=== PATIENT | male | born 1990 | race African-American/Black ===

== ENCOUNTER 2019-10-25 02:48 | Emergency (ER) | payer SELFPAY ==
[~2019-10-25] VITALS: Ht 170.2 cm; Wt 81.6 kg
[2019-10-25 02:58] VITALS: Ht 170.2 cm; Wt 81.6 kg
[2019-10-25 06:39] VITALS: BP 124/70
== END 2019-10-25 06:39 | disposition home or self-care (01) ==
LOC: ED 02:48
DX: R07.82 Intercostal pain (principal); J45.909 Unspecified asthma, uncomplicated